=== PATIENT | male | born 1995 | race Two or more races ===

== ENCOUNTER → 2019-12-21 | Emergency (ER) | payer OTHER, MEDICAID ==
[~2019-12-21] VITALS: Ht 157.5 cm; Wt 117.9 kg
[2019-12-21 21:35] VITALS: BP 113/69
== END | disposition home or self-care (01) ==
LOC: ER 21:24
DX: F10.129 Alcohol abuse with intoxication, unspecified (principal); V43.52XA Car driver injured in collision with other type car in traffic accident, initial encounter; Y93.89 Activity, other specified; Y92.488 Other paved roadways as the place of occurrence of the external cause; Y99.8 Other external cause status

== ENCOUNTER 2021-11-13 16:19 | Emergency (ER) | payer OTHER, MEDICAID ==
[~2021-11-13] VITALS: Ht 157.5 cm; Wt 122.5 kg
[2021-11-13] MEDS ORDERED: DIAZ10TA3 PO (21:04)
[2021-11-13 21:18] VITALS: BP 134/85
== END 2021-11-13 22:23 | disposition home or self-care (01) ==
LOC: ER 16:19
DX: S80.02XA Contusion of left knee, initial encounter (principal); M79.18 Myalgia, other site; V43.62XA Car passenger injured in collision with other type car in traffic accident, initial encounter; Y93.89 Activity, other specified; Y92.89 Other specified places as the place of occurrence of the external cause; Y99.8 Other external cause status
CPT/HCPCS: 71046; 73562; 74176